=== PATIENT | female | born 2000 | race Caucasian/White ===

== ENCOUNTER 2020-08-08 18:24 | Emergency (ER) | payer MEDICAID ==
[~2020-08-08] VITALS: Ht 165.1 cm; Wt 72.0 kg
[2020-08-08 18:33] VITALS: BP 126/84
[2020-08-08] MEDS ORDERED: SODIUM CHLORIDE 0.9% 1,000 ML IV ONE (19:30)
[2020-08-08] MEDS ORDERED: DIPHENHYDRAMINE 50MG/ML VIAL IV ONE (19:30)
[2020-08-08 20:31] LABS: BASOPHILS % 0.3 % (0.0-2.0); EOSINOPHILS % 1.3 % (0.0-5.0); HEMATOCRIT. 38.1 % (36.0-48.0); HEMOGLOBIN. 13.2 g/dL (12.0-16.0); LYMPHOCYTES % 26.9 % (20.0-50.0); MEAN CORPUSCULAR HEMOGLOBIN 30.3 pg (28.0-32.0); MEAN CORPUSCULAR VOLUME 87.7 fL (81.0-99.0); MEAN PLATELET VOLUME 8.9 fl (7.4-10.4); MONOCYTES % 8.7 % (2.0-8.0); NEUTROPHILS % 62.8 % (40.0-76.0); PLATELET 236 x1000/uL (130-400); RED BLOOD CELL COUNT 4.35 mill/uL (4.2-5.4)
[2020-08-08 20:37] LABS: CHLORIDE 108 mEq/L (98-107); HCG SCREEN NEGATIVE
[2020-08-08] MEDS ORDERED: DIPH25TA26 PO (21:07)
== END 2020-08-08 21:26 | disposition home or self-care (01) ==
LOC: ER 18:24
DX: T43.221A Poisoning by selective serotonin reuptake inhibitors, accidental (unintentional), initial encounter (principal); F41.9 Anxiety disorder, unspecified; R00.0 Tachycardia, unspecified; R42 Dizziness and giddiness; Y92.89 Other specified places as the place of occurrence of the external cause; J45.909 Unspecified asthma, uncomplicated; F33.9 Major depressive disorder, recurrent, unspecified
CPT/HCPCS: 36415; 80053; 83690; 84703; 85025; 93005; 96361; 96374; 99284; J1200; J7030